=== PATIENT | male | born 1950 | race Caucasian/White ===

== ENCOUNTER 2019-05-18 13:14 | Emergency (ER) | payer OTHER ==
[~2019-05-18] VITALS: Ht 190.5 cm; Wt 104.3 kg
[2019-05-18 13:14] VITALS: BP 135/83
[~2019-05-18 13:14] MED LIST: FLEXERIL PO; IBUPROFEN 600600 M1 PO; NOHOMEMEDICATIONS; NORCO 5-325 TA1 EACH PO
[2019-05-18] MEDS ORDERED: DOXYCYCLINE 10100 MG PO (14:02)
== END 2019-05-18 14:25 | disposition home or self-care (01) ==
LOC: ER 13:14
DX: L03.032 Cellulitis of left toe (principal)

== ENCOUNTER → 2020-04-07 | Outpatient (CLI) | payer OTHER ==
[~2020-04-07] MED LIST changes: +DOXYCYCLINE 10100 MG PO
== END ==
LOC: SJCVCIMAG 15:05
DX: I73.9 Peripheral vascular disease, unspecified (principal); L97.309 Non-pressure chronic ulcer of unspecified ankle with unspecified severity

== ENCOUNTER → 2020-04-07 | Outpatient (CLI) | payer OTHER | LOC: HYPER 11:42 | DX: T84.89XA Other specified complication of internal orthopedic prosthetic devices, implants and grafts, initial encounter (principal); T81.31XA Disruption of external operation (surgical) wound, not elsewhere classified, initial encounter; E11.622 Type 2 diabetes mellitus with other skin ulcer; L97.312 Non-pressure chronic ulcer of right ankle with fat layer exposed; E11.42 Type 2 diabetes mellitus with diabetic polyneuropathy; K59.00 Constipation, unspecified; M25.571 Pain in right ankle and joints of right foot; Z79.84 Long term (current) use of oral hypoglycemic drugs; Y83.2 Surgical operation with anastomosis, bypass or graft as the cause of abnormal reaction of the patient, or of later complication, without mention of misadventure at the time of the procedure; Y83.8 Other surgical procedures as the cause of abnormal reaction of the patient, or of later complication, without mention of misadventure at the time of the procedure; Y92.89 Other specified places as the place of occurrence of the external cause ==